=== PATIENT | female | born 1940 | race Caucasian/White ===

== ENCOUNTER 2016-12-14 13:07 | Observation (INO) | payer BC ==
[2016-12-10 10:55] LABS: BASOPHILS 0.2 %; BASOPHILS ABSOLUTE 0.01 10/3/uL (0.0-0.16); EOSINOPHILS 0.8 %; EOSINOPHILS ABSOLUTE 0.05 10/3/uL (0.0-0.53); HEMATOCRIT 40.9 % (36.0-48.0); HEMOGLOBIN 13.4 g/dL (12.0-16.0); IMMATURE GRANULOCYTES 0.3 %; IMMATURE GRANULOCYTES ABSOLUTE 0.02 10/3/uL (0.0-0.11); LYMPHOCYTES 11.5 %; LYMPHOCYTES ABSOLUTE 0.71 10/3/uL (0.67-4.30); MANUAL DIFF NO %; MEAN CORPUS HGB CONC 32.8 g/dL (32.0-36.0); MEAN CORPUSCULAR HEMOGLOB 30.1 pg (26.0-34.0); MEAN CORPUSCULAR VOLUME 91.9 fL (80-100); MEAN PLATELET VOLUME 9.8 fL (9.2-13.0); MONOCYTES 9.3 %; MONOCYTES ABSOLUTE 0.57 10/3/uL (0.21-1.20); NEUTROPHILS 77.9 %; PLATELET COUNT 171 10/3/uL (150-400); RBC DISTRIBUTION WIDTH 13.7 % (12.0-16.0); RED CELL COUNT 4.45 10/6/uL (4.0-5.6); WHITE BLOOD CELLS 6.2 10/3/uL (4.5-10.5)
[2016-12-10 11:03] LABS: INTERNATIONAL NORMAL RATI 1.5 UNITS (-); PARTIAL THROMBO TIME 38.9 SEC (22.5-37.2)
[2016-12-10 11:09] LABS: PFA (COL/EPI) 88 SEC (72-180)
[2016-12-10 11:12] LABS: ALBUMIN 3.2 G/DL (3.5-5.0); CALCIUM, SERUM 8.6 MG/DL (8.5-10.4); CHLORIDE, SERUM 109 MMOL/L (96-112); CO2 (CARBON DIOXIDE) 28 MMOL/L (24-34); CREATININE 0.88 MG/DL (0.55-1.02); GFR AFRICAN AMERICAN 74 ML/MIN (>=60); GFR NON AFRICAN AMERICAN 64 ML/MIN (>=60); GLOBULIN 3.1 G/DL (2.5-4.1); GLUCOSE, SERUM 93 MG/DL (60-99); POTASSIUM, SERUM 4.5 MMOL/L (3.5-5.3); SGOT(AST) 78 U/L (5-40); SGPT(ALT) 114 U/L (5-65); SODIUM, SERUM 143 MMOL/L (135-148); TOTAL BILIRUBIN 0.7 MG/DL (0-1.2); TOTAL PROTEIN 6.3 G/DL (6.0-8.5)
[2016-12-10 11:14] LABS: ALKALINE PHOSPHATASE 190 U/L (45-117); BUN (BLOOD UREA NITROGEN) 16 MG/DL (6-23)
[~2016-12-14] VITALS: Ht 165.1 cm; Wt 96.2 kg
--- NOTE | ~2016-12-14 | OP ---
Record Of Operation [facility] [address] [place]. 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 PROCEDURE: Capsulectomy. INDICATIONS AND FINDINGS OF THE PROCEDURE: This 76-year-old female presents with a distorted right breast post implant rupture hematoma, now several years in progress. She is anticipating a right mastectomy for this lesion by Dr. Torres. Secondarily she has a contracted ruptured left silicone implant appropriate for the above-described operative intervention. DETAILS OF THE PROCEDURE: The patient presents on the operating table after her right mastectomy. Our attention was turned to the left breast. The soft tissue envelope was infiltrated with lidocaine with epinephrine. Incision was carried out through her old mastectomy incision through to the level of the anterior capsule. A circum-capsular dissection was then carried out. Approximately 5 x 5 cm of capsule was densely adherent to the chest wall and this was allowed to remain in place. The capsule was entered, the silicone was suctioned away, and it was freed. The silicone implant was deteriorated. The capsule was sent for routine pathology. She was then thoroughly irrigated with Hibiclens solution, rechecked for hemostasis at multiple stages and then closed over a 15-Irish drain with multiple layers of Vicryl and Monocryl through to an intracuticular in the skin. Contralaterally the mastectomy was closed after hemostasis was rechecked and irrigated over two 15-Irish drains with multiple layers of 3-0 Monocryl and 3-0 Vicryl through to an intracuticular in the skin. She was then cleansed with peroxide. A dry dressing, circumferential Bob wrap was placed and she was remanded to the recovery room in stable condition. All sponge and needle counts were correct. NATE/CAREN Anni Cunningham M.D. / [id number] CC: MD SHANNAN Rodriguez
--- NOTE | ~2016-12-14 | OP ---
Record Of Operation [facility] [address] [place]. [address] NAME: AMANDA MOSCOSO : 40 STATUS : ADM Ivy PAT#: [id number] AGE: 76 ADM/REG DATE : 12/14/16 MR#: [id number] REPORT SERV DATE: 12/15/16 DICTATED BY: PADMA VENCES DATE: 12/14/16 REPORT STATUS : Draft TRANSCRIBED BY: MODL DATE: 12/14/16 DATE OF PROCEDURE: 12/14/2016 PREOPERATIVE DIAGNOSIS: Right chest wall hematoma with likely ruptured silicone implant. POSTOPERATIVE DIAGNOSIS: Right chest wall ruptured implant with significant inflammation and evolving hematoma. PROCEDURES: Right chest wall completion mastectomy, removal of ruptured implant with capsule and pectoralis muscle. INDICATION FOR THE PROCEDURE: Mrs. Moscoso is a 76-year-old female, who is on blood thinners for heart disease, who had bilateral subcutaneous mastectomy in 1980 for fibrocystic changes. She had silicone implants placed behind her pectoralis muscles at that time and did well. Over the last seven to eight years, she has noticed changes to the right chest wall with significant increasing in size and most recently a purplish change to the skin tone. Dr. Cunningham saw the patient and did drain approximately a liter of serosanguineous fluid off the area, which showed inflammatory response, but no malignancy. All imaging is quite difficult to discern. This could likely be only inflammatory response with resolving hematoma or it could be lymphoma secondary to silicone rupture or some other type of malignancy. The patient does have a slightly enlarged right hilar lymphadenopathy on her CT scan as well as a small possible pleural effusion on chest x-ray preoperatively. The plan is to clean out the area of inflammation, remove the ruptured implant, and possibly have to remove the pectoralis muscle. Dr. Cunningham will plan on closing the incision as well as removing the implant on the left side. OPERATIVE FINDINGS: After appropriate consent was noted on the chart, the patient was taken to the operating room in supine position. She was placed under general anesthesia without any complications. Her bilateral chest wall was prepped and draped in sterile fashion. A small incision was made in the anterior portion of this very generous abnormality. Approximately a liter of old liquified hematoma and silicone were suctioned. At that point, a large elliptical incision was made to encompass the nipple-areolar complex and majority of the skin on the anterior chest wall. Sharp dissection was carried down to the level of the subcutaneous tissue and flaps created in all directions to the extent of the implant. The implant was attempted to free from the pectoralis muscle in multiple locations including along the inframammary crease as well as the medial and superior portions. The muscle was unfortunately completely adhered to the inflamed ruptured implant and could not be safely . The muscle was then divided near the axillary tail. It was divided superiorly, and I was able to get a soft tissue plane behind the implant superiorly. I worked in this plane for approximately residential across the chest wall and then did reach an area of very firm attachment of the implant to the chest wall. At this point, I felt that a small portion of the capsule posteriorly would have to be left on the chest wall medially for safety. The remainder of the capsule was freed from the chest wall and a small portion of it left medially. The entire specimen was able to be lifted off the chest wall, was marked with sutures, and sent for permanent pathology. A decent portion of the firm tissue noted Record Of Operation [facility] [id number] [facility] [place]. [address] NAME: AMANDA MOSCOSO : 40 STATUS : ADM Ivy PAT#: [id number] AGE: 76 ADM/REG DATE : 12/14/16 MR#: [id number] REPORT SERV DATE: 12/15/16 DICTATED BY: PADMA VENCES DATE: 12/14/16 REPORT STATUS : Draft TRANSCRIBED BY: MODL DATE: 12/14/16 inside of the capsule was sent for frozen section and was noted to be old organized hematoma with no sign of malignancy. This made me feel quite comfortable that this is all going to be inflammatory response and resolving hematoma and not a sign of malignancy. Again, the entire area was sent for permanent pathology. The wound was copiously irrigated with warm saline. There were still some bleeders on the chest wall and therefore Surgicel was placed along the anterior chest wall and pressure held with gauze for 10 minutes. At this point, Dr. Cunningham's team came in for their portion of the case. Please see his dictation for further details. He plans on removing the left breast implant and closing both incisions and placing drains. At the end of my portion of case, all counts were correct. ESTIMATED BLOOD LOSS: 100 mL. COMPLICATIONS: None. SPECIMEN: Right ruptured breast implant with pectoralis muscle, skin, and fat. BW/MODL Padma Vences MD / [id number] CC: MD Russell Rodriguez M.D. Jane Rohrer, M.D. [facility] SHANNAN WONG MD
[~2016-12-14 13:07] MED LIST: ACET500CAP PO; ACETSUP325 PR; ADVIL PO; ALEVE220 MG PO; ASAB PO; CARD30 PO; CAT1 PO; CLARIT10 PO; CORDARONE PO; COZ25 PO; CYANO1000T PO; DIGITEK0.25 MG PO; FLECAINIDE100 MG PO; FLORINEF0.1 MG PO; HALF81 PO; HCTZ25B PO; HYDROCHLOROT25 MG PO; INDE80LA PO; KLOR-CON M2020 MEQ PO; LAN25 PO; LIPITOR40 PO; LOP25 PO; MAXIMUM D3 PO; NATURA2 OPH; NORV5 PO; PRADAXA150 MG PO; PRIN10 PO; PROAMAT5 PO; PROAMATINE10 MG PO; TAMBOCOR PO; TEARS NATURA OPH; VITAMIN B-121000 MC1 PO; VITAMIN D1000 UNI1 PO; ZESTRIL10 MG PO; ZYRTEC ALLGY10 MG PO; [UNRECOGNIZED DRUG - OTHER] PO
[2016-12-15] MEDS ORDERED: V5 PO (12:28)
[2016-12-15] MEDS ORDERED: PR12.5 (12:29)
[2016-12-15] MEDS ORDERED: K500 PO (12:30)
[2016-12-15] MEDS ORDERED: DIL2TAB PO (12:30)
== END 2016-12-15 13:30 | disposition home or self-care (01) ==
LOC: ENRESERV → ENRESERVTM → ENRESERVDT → SDC 13:07 → SDC/OF 17:56 → 4EA 17:56
PROVIDERS: Surgery Surgical Oncology
PROC: 0HPU0JZ Removal of Synthetic Substitute from Left Breast, Open Approach (ICD-10-PCS; principal; 2016-12-14 14:15)
DX: T85.44XA Capsular contracture of breast implant, initial encounter (principal); I10 Essential (primary) hypertension; I25.10 Atherosclerotic heart disease of native coronary artery without angina pectoris; E66.9 Obesity, unspecified; I48.91 Unspecified atrial fibrillation; Z90.13 Acquired absence of bilateral breasts and nipples; Z88.5 Allergy status to narcotic agent; Z98.890 Other specified postprocedural states
CPT/HCPCS: 71020; 80053; 85025; 85576; 85610; 85730; 88305; 88307; 88331; 93005; 96374; 96375; 96376; A9270-GY; G0378; J0690; J1170; J2270; J2405; J2550; J2710; J2795; J3010